=== PATIENT | female | born 1985 | race Caucasian/White ===

== ENCOUNTER 2020-04-25 14:50 | Outpatient (REF) | payer OTHER, SELFPAY | END 2020-04-25 14:51 | disposition home or self-care (01) | LOC: HO.LAB 14:50 | PROVIDERS: PCP Pediatrics; Visit Provider Internal Medicine | DX: Z20.828 Contact with and (suspected) exposure to other viral communicable diseases (principal) | CPT/HCPCS: C9803; U0003 ==

== ENCOUNTER 2020-05-30 06:20 | Outpatient (REF) | payer OTHER, SELFPAY | END 2020-05-30 06:21 | disposition home or self-care (01) | LOC: HO.LAB 06:20 | PROVIDERS: PCP Pediatrics; Visit Provider Internal Medicine | DX: Z20.828 Contact with and (suspected) exposure to other viral communicable diseases (principal) | CPT/HCPCS: C9803; U0003 ==

== ENCOUNTER 2020-06-07 06:50 | Outpatient (REF) | payer OTHER, SELFPAY | END 2020-06-07 06:51 | disposition home or self-care (01) | LOC: HO.LAB 06:50 | PROVIDERS: Visit Provider Internal Medicine | DX: Z20.828 Contact with and (suspected) exposure to other viral communicable diseases (principal) | CPT/HCPCS: 36415; C9803; U0003 ==

== ENCOUNTER 2020-12-20 11:51 | Outpatient (REF) | payer OTHER, SELFPAY | END 2020-12-20 11:52 | disposition home or self-care (01) | LOC: HO.BBR 11:51 | PROVIDERS: PCP Pediatrics; Visit Provider Internal Medicine | DX: Z13.89 Encounter for screening for other disorder (principal) ==

== ENCOUNTER 2021-06-22 12:20 | Outpatient (REF) | payer OTHER, SELFPAY | END 2021-06-22 12:21 | disposition home or self-care (01) | LOC: HO.BBR 12:20 | PROVIDERS: Visit Provider Internal Medicine | DX: Z13.89 Encounter for screening for other disorder (principal) ==

== ENCOUNTER 2021-11-20 15:35 | Outpatient (REF) | payer OTHER, SELFPAY | END 2021-11-20 15:36 | disposition home or self-care (01) | LOC: HO.BBR 15:35 | PROVIDERS: Visit Provider Internal Medicine | DX: Z13.89 Encounter for screening for other disorder (principal) ==

== ENCOUNTER 2022-02-28 12:34 | Outpatient (REF) | payer OTHER, SELFPAY | END 2022-02-28 12:35 | disposition home or self-care (01) | LOC: HO.BBR 12:34 | PROVIDERS: Visit Provider Internal Medicine | DX: Z13.89 Encounter for screening for other disorder (principal) ==

== ENCOUNTER 2022-06-06 09:58 | Outpatient (REF) | payer OTHER, SELFPAY | END 2022-06-06 09:59 | disposition home or self-care (01) | LOC: HO.BBR 09:58 | PROVIDERS: Visit Provider Internal Medicine | DX: Z13.89 Encounter for screening for other disorder (principal) ==

== ENCOUNTER 2022-09-05 10:09 | Outpatient (REF) | payer OTHER, SELFPAY | END 2022-09-05 10:10 | disposition home or self-care (01) | LOC: HO.BBR 10:09 | PROVIDERS: Visit Provider Internal Medicine | DX: Z13.89 Encounter for screening for other disorder (principal) ==

== ENCOUNTER 2023-03-31 10:19 | Outpatient (REF) | payer OTHER, SELFPAY | END 2023-03-31 10:20 | disposition home or self-care (01) | LOC: HO.BBR 10:19 | PROVIDERS: Visit Provider Internal Medicine | DX: Z13.89 Encounter for screening for other disorder (principal) ==

== ENCOUNTER 2023-09-29 09:50 | Outpatient (REF) | payer OTHER, SELFPAY | END 2023-09-29 09:51 | disposition home or self-care (01) | LOC: HO.BBR 09:50 | PROVIDERS: PCP Pediatrics; Visit Provider Internal Medicine | DX: Z13.89 Encounter for screening for other disorder (principal) ==

== ENCOUNTER 2024-02-25 13:11 | Outpatient (REF) | payer OTHER, SELFPAY | END 2024-02-25 13:12 | disposition home or self-care (01) | LOC: HO.BBR 13:11 | PROVIDERS: PCP Pediatrics; Visit Provider Internal Medicine | DX: Z13.89 Encounter for screening for other disorder (principal) ==

== ENCOUNTER 2024-07-02 15:03 | Outpatient (REF) | payer OTHER, SELFPAY ==
--- OUTSIDE RECORDS SUMMARY | 2024-07-02 15:06 | XMS_ITS | Clinical Summary ---
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 PM [facility] Blood Venous blood specimen / Unknown Venipuncture / Unknown 06/29/2024 9:02 AM EST 06/29/2024 9:02 AM EST Jacqueline Sultana NP LAB BLOOD ORDERABLES [facility] [address] [place] [address], * CT Abdomen Pelvis w Contrast (06/01/2024 4:08 PM EST) Anatomical Region Laterality Modality Body Computed Tomogra phy Historical Provider IMG CT PROCEDURES * (ABNORMAL) Lipid panel (04/07/2023) LDL/HDL Ratio 5 Triglycerides 231(A) 0 - 150 mg/dL Cholesterol 204(A) 0 - 200 mg/dL HDL 45 40 mg/dL LDL Cholesterol 113(A) 0 - 100 mg/dL Blood Venous blood specimen / Unknown Historical Provider LAB BLOOD ORDERAB LES * HIV Screening (03/25/2022) HIV Screening abstracted Historical Provider MD CECY Noel * Cervical Cancer Screening: HPV (09/29/2020) Cervical Cancer Screening: HPV negative, abstracted Historical Provider MD CECY Noel from Last 3 Months or Most Recently Relevant to Health Maintenance Care Teams Complex Manager Relationship Specialty Start Date End Date Urbano Trinidad MD [address] [place] [address] PCP - General Internal Medicine 09/19/21
--- OUTSIDE RECORDS SUMMARY | 2024-07-02 15:06 | XMS_ITS | Encounter Summary ---
Author Organization [facility] Address [address] [place] [address] Care Team Providers Care General Internal Medicine Doctor Name Role Phone Urbano Trinidad MD Primary Care Provider [phone] Reason for Visit * Reason Onset Date Comments add on to bloodwork 06/30/2024 Encounter Details Date Type Department Care Team (Late st Contact Info) Description 06/30/2024 Telephone Gastroenterology - [address] [place] [phone] Kimberlee Lauren MA add on to bloodwork Social History Tobacco Use Types Packs/Day Years Used Date Smoking Tobacco: Every Day Cigarettes Smokeless Tobacco: Former Alcohol Use Standard Drinks/Week Comments Yes 0 [...] care for your loved ones. For example, child and adolescent psychiatrist or elderly care for an older adult? [...] file Not on file Not on file documented as of this encounter Progress Notes * Kimberlee Lauren MA - 06/30/2024 7:10 AM EST Spoke to the lab. They can run the test for hemochromatosis genetics. Please add the order and write on comment that is an add on to yesterdays blood. documented in this encounter Plan of Treatment Upcoming Encounters Date Type Department Care Team (Late st Contact Info) Description 08/04/2024 1:20 PM EST Office Visit Gastroenterology - [address] [place] [address], [place] [phone] Jacqueline Sultana, DIANNA [address] [address] 11/02/2024 4:00 PM EDT Office Visit Adult [facility] [address] [place] [phone] Stephanie Garcia PA [address] [place] [address] 11/09/2024 1:00 PM EDT Office Visit [facility] Hematology Oncology [address] [place] [phone] Ede Hagan MD [address] [place] [address] Pending Results Name Type Priority Associated Diagnoses Date /Time Hemochromatosis mutation Lab Routine Abnormal blood level of iron 06/29/2024 9:02 AM EST Scheduled Orders Name Type Priority Associated Diagnoses Orde r Schedule Hemochromatosis mutation Lab Routine Abnormal blood level of iron 1 Occurrences starting 06/30/2024 until 06/30/2025 documented as of this encounter Visit Diagnoses Diagnosis Abnormal blood level of iron- Primary Other abnormal blood chemistry documented in this encounter Additional Health Concerns Assessment Noted Time PHQ-9 Depression Total Score: 6 05/13/20 24 10:45 AM EST documented as of this encounter Care Teams General Internal Medicine Doctor Relationship Specialty Start Date End Date Urbano Trinidad MD [address] [place] [address] PCP - General Internal Medicine 09/19/21 documented as of this encounter
--- OUTSIDE RECORDS SUMMARY | 2024-07-02 15:06 | XMS_ITS | Clinical Summary ---
Author Organization [facility] Address [address] [id number] Care Team Providers Care Agricultural Extension Educator Name Role Phone Araceli Flynn MD Primary Care Provider Allergies No known active allergies Medications Medication Sig Dispensed Refills Start Date End Date Status naproxen (NAPROSYN) 500 MG tablet Take 1 tablet (500 mg total) by mouth 2 (two) times a day with meals. 0 Active cyclobenzaprine (FLEXERIL) 10 MG tablet Take 1 tablet (10 mg total) by mouth 3 (three) times a day as needed for muscle spasms. 0 Active gabapentin (NEURONTIN) 300 MG capsule Take 1 capsule (300 mg total) by mouth 2 (two) times a day. 0 Active diclofenac (VOLTAREN) 75 MG EC tablet Take 1 tablet (75 mg total) by mouth daily. 0 Active Active Problems No known active problems Social History Tobacco Use Types Packs/Day Years Used Date Smoking Tobacco: Every Day Smokeless Tobacco: Never Alcohol Use Standard Drinks/Week Comments Yes 0 (1 standard drink = 0.6 oz pur e alcohol) ocassion. Sex and Gender Information Value Date Recorded Sex Assigned at Not on file Gender Identity Not on file Sexual Orientation Not on file Job Start Date Occupation Industry Not on file Not on file Not on file Last Filed Vital Signs Vital Sign Reading Time Taken Comments Blood Pressure 125/67 02/19/2024 10:29 AM EDT Pulse 90 02/19/2024 10:29 AM EDT Temperature 37.1 ??C (98.7 ??F) 02/19/2024 10:29 AM E DT Respiratory Rate - - Oxygen Saturation 9% 02/19/2024 10:29 AM EDT Inhaled Oxygen Concentration - - Weight 64.4 kg (142 lb) 02/19/2024 10:29 AM EDT Height 157.5 cm (5' 2 ) 06/05/2022 1:13 PM EST Body Mass Index 25.97 06/05/2022 1:13 PM EST Plan of Treatment Health Maintenance Due Date Last Done Comments Hepatitis B Vaccines (1 of 3 - 3-dose series) 1984 Depression Screening 1996 Preventative Health Evaluation 2002 Cervical Cancer Screening (Pap Smear) 2005 Pneumococcal Vaccine (2 of 2 - PCV) 02/17/2011 02/17/2010 COVID-19 Vaccine ( season) 2024 07/31/2021, 07/07/2021, 08/02/2020, Additional history exists Influenza Vaccine (#1) 2024 03/04/2013 DTap / Tdap / Td (4 - Td or Tdap) 11/02/2030 11/02/2020, 03/18/2013, 02/17/2010 Hepatitis C Screening Completed 06/04/2017 RSV Ped < 20 months Aged Out No longe r eligible based on patient's age to complete this topic Care Teams Agricultural Extension Educator Relationship Specialty Start Date End Date Araceli Flynn MD PCP - General Internal Medicine 07/17/16
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
== END 2024-07-02 15:04 | disposition home or self-care (01) ==
LOC: HO.BBR 15:03
PROVIDERS: Visit Provider Internal Medicine
DX: Z13.89 Encounter for screening for other disorder (principal)

== ENCOUNTER 2024-09-30 15:10 | Outpatient (REF) | payer OTHER, SELFPAY ==
--- OUTSIDE RECORDS SUMMARY | 2024-09-30 17:03 | XMS_ITS | Clinical Summary ---
Author Organization [address] Address [address] [place] [phone] Phone Care Team Providers Care Imaging System Administrator Name Role Phone Urbano Trinidad MD Primary Care Provider Allergies No known active allergies Medications cyanocobalamin (VITAMIN B-12) 1,000 mcg tablet Take 1 tablet (1,000 mcg total) by mouth 3 (three) times a week. 024 Active nicotine polacrilex (NICORETTE) 2 mg gum CHEW 1 PIECE BY MOUTH EVERY 2 HOURS NEEDED FOR NICOTINE CRAVING. MAX 8 PIECES PER DAY 023 Active senna-docusate (Senexon-S) 8.6-50 mg per tablet TAKE 2 TABLETS AT BEDTIME NEEDED FOR CONSTIPATION Active diclofenac (VOLTAREN) 1 % topical gel Apply 2 g topically 2 times daily. 024 Active ondansetron ODT (ZOFRAN-ODT) 4 mg disintegrating tablet Take 1 tablet (4 mg total) by mouth every 8 (eight) hours if needed for nausea or vomiting. 024 Active famotidine (Pepcid) 20 mg tablet Take 1 tablet (20 mg total) by mouth 2 (two) times a day. 180 each 1 Active traZODone (DESYREL) 50 mg tablet Take 1 tablet (50 mg total) by mouth at bedtime. 90 tablet 1 024 2024 Active diclofenac (VOLTAREN) 75 mg EC tablet TAKE 1 TAB 2X DAILY NEEDED FOR PAIN STOP IF ANY NAUSEA, VOMITING, GI UPSET, CONSTIPTAION OR DIARRHEA AND NOTIFY OFFICE 60 tablet 4 025 Active omeprazole (PriLOSEC) [address] capsule TAKE 2 CAPSULES BY MOUTH EVERY DAY 180 capsule 1 025 Active famotidine (PEPCID) 40 mg tabletIndications :Gastroesophageal reflux disease, unspecified whether esophagitis present,Nausea Take 1 tablet (40 mg total) by mouth 2 (two) times a day. 180 each 3 025 2025 Active ondansetron (ZOFRAN) 4 mg tabletIndications :Gastroesophageal reflux disease, unspecified whether esophagitis present,Nausea Take 1 tablet (4 mg total) by mouth every 12 (twelve) hours if needed for nausea or vomiting for up to 30 doses. 30 tablet 025 Active gabapentin (NEURONTIN) 300 mg capsule TAKE 1 CAPSULE BY MOUTH TWICE A DAY 60 capsule 2 025 Active acetaminophen (TYLENOL 8 HOUR) 650 mg 8 hr tablet TAKE 1 TABLET BY MOUTH THREE TIMES A DAY NEEDED FOR PAIN 90 tablet 2 025 Active cyclobenzaprine (FLEXERIL) 10 mg tablet TAKE 1 TABLET BY MOUTH AT BEDTIME NEEDED FOR MUSCLE SPASMS 30 tablet 1 025 Active cyclobenzaprine (FLEXERIL) 10 mg tablet Take 1 tablet (10 mg total) by mouth at bedtime as needed for muscle spasms. 30 tablet 4 024 2024 Discontinued traMADoL (ULTRAM) 50 mg tablet Take 1 tablet (50 mg total) by mouth every 6 (six) hours if needed (Moderate to severe pain) for up to 7 days. Max Daily Amount: 200 mg 28 tablet 025 2024 traMADoL (ULTRAM) 50 mg tablet Take 1 tablet (50 mg total) by mouth every 6 (six) hours if needed (Moderate to severe pain) for up to 7 days. Max Daily Amount: 200 mg 28 tablet 025 2024 Hospital, Clinic, or Other Facility Administered Medication Ordered Dose Route Frequency Start Date End Date Status lidocaine (XYLOCAINE) 1 % injection 0.5 mLIndications:Capsul itis of left ankle .5 mL inj Once PRN Procedure 09/21/2024 09/21/2024 Ended triamcinolone acetonide (KENALOG-40) 40 mg/mL injection 40 mgIndications:Capsul itis of left ankle 40 mg IAtc Once PRN Procedure 09/21/2024 09/21/2024 Ended Active Problems Problem Noted Date Diagnosed Date Macrocytosis 04/05/2024 Chronic pain of left ankle 04/05/2024 Gastroesophageal reflux disease without esophagi tis 04/05/2024 Genital herpes 02/26/2024 Herniated nucleus pulposus, C5-6 right Cervical disc herniation 10/03/2022 Overview (02/26/2024): Last [...] discussed her most recent cervical MRI from [facility] dated 07/31/2022 which shows disc desiccation and [...] human papilloma virus (HPV) 10/27/2018 Overview (02/26/2024): 2006 - SANA III - no follow up [...] valgus (acquired), right foot 10/22/2016 Hereditary hemochromatosis ([facility] V24) 016 Hemochromatosis 08/26/2012 Encounters Date Type Department Care Team Description 09/23/2024 Telephone Orthopedic Surgery [facility] [address] [phone] Sam Willis DPM 09/21/2024 2:15 PM EDT Office Visit Orthopedic Surgery [facility] [address] [phone] Sam Willis DPM Arthritis of left foot (Primary Dx); Capsulitis of left ankle 09/12/2024 10:04 AM EDT - 09/12/2024 11:59 PM EDT Hospital Encounter [facility] MRI [address] [place] [phone] Disorder of ligament of ankle, left; Peroneal tendinitis of left lower extremity; Capsulitis of left ankle Discharge Disposition: Home or Self Care 09/01/2024 1:45 PM EDT Office Visit Orthopedic [facility] [address] [phone] Lazaro, Sam A, DPM Disorder of ligament of ankle, left (Primary Dx); Peroneal tendinitis of left lower extremity; Capsulitis of left ankle 08/04/2024 1:20 PM EST Office Visit Gastroenterology - 299 [facility] 299 [facility] [address] [place] [phone] Jacqueline Sultana NP Gastroesophageal reflux disease, unspecified whether esophagitis present (Primary Dx); Nausea 07/13/2024 Telephone Orthopedic Surgery - [place] 250 175 [facility] [address] [place] [phone] Amy Kruse MA 07/09/2024 7:48 AM EST - 07/09/2024 11:59 PM EST Hospital Encounter [facility] Nuclear Medicine [address] [place] [phone] Epigastric pain; Nausea; Abnormal liver function; Fatty liver Discharge Disposition: Home or Self Care from Last 3 Months Immunizations Name Administration Dates Next Due HPV, Quadrivalent 12/16/2007,10/15/2007 Influenza trivalent, with pr eservative (Fluzone; Afluria) 6mo and older 08/12/2022,07/15/2016,04/13/2014,03/04,03/13/2012,03/14/2010 Measles 07/05/2016 PPD Test 07/12/2016,07/05/2016 [employer] SARS-CoV-2 COVID-19, mRNA, LNP-S, preservative free 07/31/2021,07/07/2021,08/02/2020,07/12 Pneumococcal polysaccharide 23 valent (Pneumovax 23) 2yo and older 02/17/2010 Rubella 09/25/2016 Tdap Tetanus diptheria acell ular pertussis (Boostrix; Adacel) 7yo and older 11/02/2020,03/18/2013,02/17/2010 Varicella live (Varivax) 12m o and older 09/25/2016 Surgical History Surgery Date Site/Laterality Comments MULTIPLE TOOTH EXTRACTIONS PROCEDURE: EACH ADD TOOTH EXTRACTION COLPOSCOPY PROCEDURE: [place] COLPOSCOPY ENTIRE VAGINA W/CERVIX IF PRESENT NECK [...] Record ed Within the last 3 months, bert conroy many times did you visit the emergency [...] for your loved ones. For example, child support case officer or elderly care for an older adult? [...] What is your living situation? 1 07/14/2023 Comments Unknown Sex and Gender Information Value Date Recorded Sex Assigned at Not on file Legal Sex Female 6:50 PM EST Gender Identity Not on file Sexual Orientation Not on file Obstetrics History Last Filed Vital Signs Vital Sign Reading Time Taken Comments Blood Pressure 132/70 05/13/2024 11:09 AM EST Pulse 82 05/13/2024 11:09 AM EST Temperature 36.5 ??C (97.7 ??F) 05/13/2024 11:[address] Respiratory Rate 16 05/13/2024 11:09 AM EST Oxygen Saturation - - Inhaled Oxygen Concentration - - Weight 66.7 kg (147 lb) 09/21/2024 2:17 PM EDT Height 152.4 cm (5') 09/21/2024 2:17 PM EDT Body Mass Index 28.71 09/21/2024 2:17 PM EDT Plan of Treatment Upcoming Encounters Date Type Department Care Team (Late st Contact Info) Description 10/06/2024 1:00 PM EDT Office Visit Gastroenterology - [address] [phone] Jacqueline Sultana NP [address] [phone] 11/02/2024 4:00 PM EDT Office Visit Adult Medicine [facility] [address] [place] [phone] Stephanie Garcia PA [address] [place] [address] 11/09/2024 1:00 PM EDT Office Visit [facility] Hematology Oncology [address] [place] [phone] Ede Hagan MD [address] [place] [address] Health Maintenance Due Date Last Done Comments Breast Cancer Screening 1984 Hepatitis B Vaccines (1 of 3 - 19+ 3-dose series) 09/05/2003 HPV Vaccines (3 - 3-dose series) 04/16/2008 12/16/2007, 10/15/2007 Pneumococcal Vaccine: Pediatrics (0 to 5 Years) and At-Risk Patients (6 to 64 Years) (2 of 2 - PCV) 02/17/2011 02/17/2010 COVID-19 Vaccine (5 - 2024-25 season) 2024 07/31/2021, 07/07/2021, 08/02/2020, Additional history exists Influenza Vaccine (Season Ended) 2025 02/17/2023, 08/12/2022, 07/15/2016, Additional history exists Depression Screening [...] patient's age to complete this topic Meningococcal B Vaccine Aged Out No l onger eligible based on patient's age to complete this topic RSV Immunization Patients Under 20 months Aged Out No longer eligible based on patient's age to complete this topic Procedures Procedure Name Priority Date/Time Associated Diagnosis Comments [place] ARTHROCENTESIS/ASPIRA TION/INJECTION INTERMEDIATE JOINT/BURSA WO U/S GUID Routine 09/21/2024 2:15 PM EDT Capsulitis of left ankle MR ANKLE WO CONTRAST LEFT Routine 09/12/2024 10:51 AM EDT Disorder of ligament of ankle, left Peroneal tendinitis of left lower extremity Capsulitis of left ankle NM HEPATOBILIARY SYSTEM IMAGING W DRUG Routine 07/09/2024 11:24 AM EST Epigastric pain Nausea Abnormal liver function Fatty liver EXTERNAL CLINICAL LAB 07/09/2024 HEPATITIS C ANTIBODY Routine 06/29/2024 9:02 AM EST Epigastric pain Nausea Abnormal liver function Fatty liver Gastroenteritis Transaminitis Hereditary hemochromatosis (CMS/HCC V24) Gastroesophageal reflux disease without esophagitis Cervical disc herniation Macrocytosis LIPID PANEL Routine 04/07/2023 HM HIV SCREENING Routine 03/25/2022 HM HPV Routine 09/29/2020 from Last 3 Months or Most Recently Relevant to Health Maintenance Results * [place] ARTHROCENTESIS/ASPIRATION/INJECTION INTERMEDIATE JOINT/BURSA WO U/S GUID (09/21/2024 2:15 PM EDT) Narrative Sam Willis DPM - 09/21/2024 2:15 PM EDT Sam Willis DPM ? 09/21/2024 ??5:54 PM M Inj/Asp: L ankle Indications: pain Details: 25 G needle Medications: 0.5 mL lidocaine 1 %; 40 mg triamcinolone acetonide 40 mg/mL Informed Consent: ??Laterality: ??Left us Sam Willis DPM IN CLINIC/BEDSIDE ORDERABLE S Final Result * MR Ankle wo Contrast Left (09/12/2024 10:51 AM EDT) Anatomical Region Laterality Modality Lower Extremities, Ankle Left Magneti c Resonance 09/13/2024 9:29 AM EDT Impressions 09/13/2024 9:40 AM EDT 1. ??Severe degenerative changes at the talonavicular articulation. 2. ??Prominent osteophytes arising from the posterior subtalar joint with a small associated effusion and mild adjacent soft tissue edema. 3. ??No Achilles tendinopathy or tear. 4. ??Prominent fluid in the flexor hallucis longus tendon sheath. -------- FINAL REPORT -------- Dictated By: Bassam Laurent Dictated Date: 09/13/2024 09:29 ET Assigned Physician: Bassam Laurent Reviewed and Electronically Signed By: Bassam Laurent Signed Date: 09/13/2024 09:40 ET Workstation ID: [id number] Transcribed By: Self Edit Transcribed Date: 09/13/2024 09:29 ET Narrative 09/13/2024 9:40 AM EDT Procedure: MRI of the left ankle without intravenous contrast. HISTORY: Insertional Achilles tendinitis and ATFL pain. COMPARISON: None. TECHNIQUE: Multiplanar multisequence MRI of the left ankle without intravenous contrast administration. FINDINGS: Tendons: The Achilles tendon is normal in caliber, contour, and signal. ??The peroneal tendons are normal. ??There is a large amount of fluid in the flexor hallucis longus tendon sheath. ??The medial flexor tendons are unremarkable. ??The extensor tendons are normal. Ligaments: The anterior and posterior tibiofibular and talofibular ligaments are intact. ??Calcaneofibular ligament is normal. ??Deltoid complex and spring ligaments are normal. ??The Lisfranc and intermetatarsal ligaments are normal. Plantar fascia: Normal. Bones: Symmetric ankle mortise with an intact talar dome. ??Prominent osteophytes arising from the posterior subtalar joint with a small joint effusion and adjacent soft tissue edema. ??Severe degenerative changes at the talonavicular articulation, with diffuse full-thickness cartilage loss, patchy marrow edema, multiple small subchondral cysts, and small dorsal osteophytes. ??Small subchondral cyst in the distal calcaneus at the articulation with the cuboid. ??Small retrocalcaneal spur. Procedure Note Bassam Laurent MD - 09/13/2024 Procedure: MRI of the left ankle without intravenous contrast. HISTORY: Insertional Achilles tendinitis and ATFL pain. COMPARISON: None. TECHNIQUE: Multiplanar multisequence MRI of the left ankle withoutintravenous contrast administration. FINDINGS: Tendons: The Achilles tendon is normal in caliber, contour, and signal.The peroneal tendons are normal. There is a large amount of fluid in theflexor hallucis longus tendon sheath. The medial flexor tendons areunremarkable. The extensor tendons are normal. Ligaments: The anterior and posterior tibiofibular and talofibularligaments are intact. Calcaneofibular ligament is normal. Deltoidcomplex and spring ligaments are normal. The Lisfranc and intermetatarsalligaments are normal. Plantar fascia: Normal. Bones: Symmetric ankle mortise with an intact talar dome. Prominentosteophytes arising from the posterior subtalar joint with a small jointeffusion and adjacent soft tissue edema. Severe degenerative changes atthe talonavicular articulation, with diffuse full-thickness cartilageloss, patchy marrow edema, multiple small subchondral cysts, and smalldorsal osteophytes. Small subchondral cyst in the distal calcaneus at thearticulation with the cuboid. Small retrocalcaneal spur. IMPRESSION: 1. Severe degenerative changes at the talonavicular articulation. 2. Prominent osteophytes arising from the posterior subtalar joint with asmall associated effusion and mild adjacent soft tissue edema. 3. No Achilles tendinopathy or tear. 4. Prominent fluid in the flexor hallucis longus tendon sheath. -------- FINAL REPORT -------- Dictated By: Bassam Laurent Dictated Date: 09/13/2024 09:29 ET Assigned Physician: Bassam Laurent Reviewed and Electronically Signed By: Bassam Laurent Signed Date: 09/13/2024 09:40 ET Workstation ID: [id number] Transcribed By: Self Edit Transcribed Date: 09/13/2024 09:29 ET Sam Willis DPM IMG MRI PROCEDURES Final Re sult * NM Hepatobiliary System Imaging W Drug (07/09/2024 11:24 AM EST) Anatomical Region Laterality Modality Body Nuclear Medicine 07/09/2024 3:08 PM EST Impressions 07/09/2024 3:10 PM EST No evidence of cystic duct obstruction. Patent common bile duct. Normal gallbladder ejection fraction. -------- FINAL REPORT -------- Dictated By: Ramesh Perea Dictated Date: 07/09/2024 15:08 ET Assigned Physician: Ramesh Perea Reviewed and Electronically Signed By: Ramesh Perea Signed Date: 07/09/2024 15:10 ET Workstation ID: [id number] Transcribed By: Self Edit Transcribed Date: 07/09/2024 15:08 ET Narrative 07/09/2024 3:10 PM EST HISTORY: Right upper quadrant pain FINDINGS: Routine hepatobiliary scintigraphy examination was performed following 3.82 mCi of Tc-99m Choletec IV. No prior relevant studies available for comparison. There is prompt accumulation of radiopharmaceutical by the hepatic parenchyma. There is normal uptake within the common bile duct, gallbladder, and small bowel. There is no biliary obstruction. Calculated gallbladder ejection fraction of 79% is within normal limits. Procedure Note Ramesh Perea MD - 07/09/2024 HISTORY: Right upper quadrant pain FINDINGS: Routine hepatobiliary scintigraphy examination was performedfollowing 3.82 mCi of Tc-99m Choletec IV. No prior relevant studies available for comparison. There is prompt accumulation of radiopharmaceutical by the hepaticparenchyma. There is normal uptake within the common bile duct,gallbladder, and small bowel. There is no biliary obstruction. Calculated gallbladder ejection fraction of 79% is within normal limits. IMPRESSION: No evidence of cystic duct obstruction. Patent common bile duct. Normal gallbladder ejection fraction. -------- FINAL REPORT -------- Dictated By: Ramesh Perea Dictated Date: 07/09/2024 15:08 ET Assigned Physician: Ramesh Perea Reviewed and Electronically Signed By: Ramesh Perea Signed Date: 07/09/2024 15:10 ET Workstation ID: [id number] Transcribed By: Self Edit Transcribed Date: 07/09/2024 15:08 ET Jacqueline Sultana EMISSIONS REPAIR TECHNICIAN IMG NM PROCEDURES Final Resul t * External clinical lab (07/09/2024) Provider [facility] LAB BLOOD ORDERABLES Fin al Result * Hepatitis C antibody (06/29/2024 9:02 AM EST) Hepatitis C Antibody Negative Negative LAB CHEMISTRY METHOD 06/29/2024 1:13 PM EST [facility] Blood Venous blood specimen / Unknown Venipuncture / Unknown 06/29/2024 9:02 AM EST 06/29/2024 9:02 AM EST Jacqueline Sultana EMISSIONS REPAIR TECHNICIAN LAB BLOOD ORDERABLES Final Re sult [facility] [address] [place] [address], * (ABNORMAL) Lipid panel (04/07/2023) Pathologist [facility] LDL/HDL Ratio 5 Triglycerides 231(A) 0 - 150 mg/dL Cholesterol 204(A) 0 - 200 mg/dL HDL 45 >=40 mg/dL LDL Cholesterol 113(A) 0 - 100 mg/dL Blood Venous blood specimen / Unknown Historical Provider LAB BLOOD ORDERABLES Valorie l Result * HIV Screening (03/25/2022) [facility] HIV Screening abstracted Historical Provider HEALTH MAINTENANCE Final Result * Cervical Cancer Screening: HPV (09/29/2020) [facility] Cervical Cancer Screening: HPV negative, abstracted Historical Provider HEALTH MAINTENANCE Final Result from Last 3 Months or Most Recently Relevant to Health Maintenance Insurance [facility] [employer] Care Teams Imaging System Administrator Relationship Specialty Start Date End Date Urbano Trinidad MD [address] [place] [address] PCP - General Internal Medicine 09/19/21
--- OUTSIDE RECORDS SUMMARY | 2024-09-30 17:03 | XMS_ITS | Clinical Summary ---
Author Organization [facility] Address [address] [id number] Care Team Providers Care Area Field Worker Name Role Phone Araceli Flynn MD Primary [...] age to complete this topic Care Teams Area Field Worker Relationship Specialty Start Date End Date Araceli Flynn MD PCP - General Internal Medicine 07/17/16
== END 2024-09-30 15:11 | disposition home or self-care (01) ==
LOC: HO.BBR 15:10
PROVIDERS: PCP Pediatrics; Visit Provider Internal Medicine
DX: Z13.89 Encounter for screening for other disorder (principal)

== ENCOUNTER 2025-02-01 14:51 | Outpatient (REF) | payer OTHER, SELFPAY ==
--- OUTSIDE RECORDS SUMMARY | 2025-02-01 16:10 | XMS_ITS | Clinical Summary ---
Author Organization [facility] Address [address] [place], [place] [id number] Care Team Providers Care Non Linear Editor Name Role Phone Araceli Flynn MD Primary [...] 90 02/19/2024 10:29 AM EDT Temperature 37.1 C (98.7 F) 02/19/2024 10:29 AM EDT Respiratory Rate - - Oxygen Saturation 9% [...] 08/02/2020, Additional history exists Influenza Vaccine (#1) 2025 03/04/2013 DTap / Tdap / Td (4 - Td or Tdap) 11/02/2030 11/02/2020, 03/18/2013, 02/17/2010 Hepatitis C Screening Completed 06/04/2017 RSV Ped < 20 months Aged Out No longe r eligible based on patient's age to complete this topic Care Teams Non Linear Editor Relationship Specialty Start Date End Date Araceli Flynn MD PCP - General Internal Medicine 07/17/16
--- OUTSIDE RECORDS SUMMARY | 2025-02-01 16:10 | XMS_ITS | Clinical Summary ---
Author Organization [address] Address [address] [place] [phone] Phone Care Team Providers Care Floor Polisher Name Role Phone Urbano Trinidad MD Primary Care Provider Allergies No known active allergies Medications nicotine polacrilex (NICORETTE) 2 mg gum CHEW 1 PIECE BY MOUTH EVERY 2 HOURS NEEDED FOR NICOTINE CRAVING. MAX 8 PIECES PER DAY 023 Active senna-docusate (Senexon-S) 8.6-50 mg per tablet TAKE 2 TABLETS AT BEDTIME NEEDED FOR CONSTIPATION 023 Active diclofenac (VOLTAREN) 1 % topical gel Apply 2 g topically 2 times daily. 024 Active famotidine (PEPCID) 40 mg tabletIndications :Gastroesophageal [...] to 30 doses. 30 tablet 025 Active traZODone (DESYREL) 50 mg tablet TAKE 1 TABLET BY MOUTH EVERYDAY AT BEDTIME 90 tablet 1 025 Active cyanocobalamin (VITAMIN B-12) 1,000 mcg tablet TAKE 1 TABLET BY MOUTH THREE TIMES A WEEK. 36 tablet 4 025 Active gabapentin (NEURONTIN) 300 mg capsule Take 1 capsule (300 mg total) by mouth 2 (two) times a day. 180 capsule 1 025 Active cyclobenzaprine (FLEXERIL) 10 mg tablet TAKE 1 TABLET BY MOUTH AT BEDTIME NEEDED FOR MUSCLE SPASMS 30 tablet 3 025 Active oxyCODONE (ROXICODONE) 5 mg immediate release tabletIndications :Chronic pain syndrome,Spondylo sis of cervical region without myelopathy or radiculopathy,Chr onic bilateral low back pain without sciatica,Chronic pain of left ankle Take 1 tablet (5 mg total) by mouth 2 (two) times a day if needed for severe pain. Max Daily Amount: 10 mg 56 tablet 025 Active ondansetron ODT (ZOFRAN-ODT) 4 mg disintegrating tablet Take 1 tablet (4 mg total) by mouth every 8 (eight) hours if needed for nausea or vomiting. 024 2024 Discontinued oxyCODONE (ROXICODONE) 5 mg immediate release tabletIndications :Chronic pain syndrome,Spondylo sis of cervical region without myelopathy or radiculopathy,Chr onic bilateral low back pain without sciatica,Chronic pain of left ankle Take 1 tablet (5 mg total) by mouth 2 (two) times a day if needed for severe pain. Max Daily Amount: 10 mg 56 tablet 025 2024 Discontinued(R eorder) Active Problems Problem Noted Date Diagnosed Date Mixed hyperlipidemia 11/18/2024 Transaminitis 11/18/2024 Macrocytosis 04/05/2024 Chronic pain of left ankle 04/05/2024 Gastroesophageal reflux disease without esophagi tis 04/05/2024 Genital herpes 02/26/2024 Herniated nucleus pulposus, C5-6 right Cervical disc herniation 10/03/2022 Overview (02/26/2024): Last Assessment & Plan: Ms. Gonzalez did attend physical therapy for her neck [...] discussed her most recent cervical MRI from [place] dated 07/31/2022 which shows disc desiccation and [...] valgus (acquired), right foot 10/22/2016 Hereditary hemochromatosis (CMS/HCC V24) 016 Hemochromatosis 08/26/2012 Encounters Date Type Department Care Team Description 01/18/2025 1:30 PM EDT Office Visit [address] [phone] Urbano Trinidad MD Chronic pain syndrome (Primary Dx); Spondylosis of cervical region without myelopathy or radiculopathy; Chronic bilateral low back pain without sciatica; Chronic pain of left ankle; Transaminitis; Hereditary hemochromatosis (CMS/HCC V24); Macrocytosis; Mixed hyperlipidemia; Gastroesophageal reflux disease without esophagitis 11/18/2024 1:00 PM EDT Office Visit [address] [phone] Urbano Trinidad MD Chronic pain syndrome (Primary Dx); Spondylosis of cervical region without myelopathy or radiculopathy; Chronic bilateral low back pain without sciatica; Chronic pain of left ankle; Transaminitis; Hereditary hemochromatosis (CMS/HCC V24); Macrocytosis; Mixed hyperlipidemia; Gastroesophageal reflux disease without esophagitis 11/09/2024 1:00 PM EDT Office Visit [facility] Hematology Oncology [address] [place] [phone] Ede Hagan MD Hereditary hemochromatosis ([facility]/HCC V24) (Primary Dx) 11/08/2024 Telephone Gastroenterology - 299 [facility] [address] [phone] Chelly Foley [place] 11/05/2024 7:59 AM EDT - 11/05/2024 11:59 PM EDT Hospital Encounter [facility] Xray [address] [place] [phone] Gastroesophageal reflux disease, unspecified whether esophagitis present; Nausea Discharge Disposition: Home or Self Care 11/02/2024 4:00 PM EDT Office Visit [address] [phone] Stepahnie Garcia PA Adult general medical examination (Primary Dx); Multiple atypical skin moles; Cervical disc herniation; Insomnia, unspecified type; Screening cholesterol level; Screening for diabetes mellitus; Encounter for screening mammogram for malignant neoplasm of breast from Last 3 Months Immunizations Name Administration Dates Next Due HPV, Quadrivalent 12/16/2007,10/15/2007 Influenza trivalent, with pr eservative (Fluzone; Afluria) 6mo and older 08/12/2022,07/15/2016,04/13/2014,03/04,03/13/2012,03/14/2010 Measles 07/05/2016 PPD Test 07/12/2016,07/05/2016 [employer] SARS-CoV-2 COVID-19, mRNA, LNP-S, preservative free 07/31/2021,07/07/2021,08/02/2020,07/12 Pneumococcal conjugate 20 va lent (Prevnar 20, PCV 20) 2mo and older 11/02/2024 Pneumococcal polysaccharide 23 valent (Pneumovax 23) 2yo and older 02/17/2010 Rubella 09/25/2016 Tdap Tetanus diptheria acell ular pertussis (Boostrix; Adacel) 7yo and older 11/02/2020,03/18/2013,02/17/2010 Varicella live (Varivax) 12m o and older 09/25/2016 Surgical History Surgery Date Site/Laterality Comments MULTIPLE TOOTH EXTRACTIONS PROCEDURE: EACH ADD TOOTH EXTRACTION COLPOSCOPY PROCEDURE: MN COLPOSCOPY ENTIRE VAGINA W/CERVIX IF PRESENT NECK [...] Types Packs/Day Years Used Date Smoking Tobacco: Former Cigarettes Smokeless Tobacco: Former Tobacco Cessation:Counseling Given: Not Answered Alcohol Use Standard Drinks/Week [...] your loved ones. For example, child care supervisor or elderly care for an older adult? [...] is your living situation? 1 07/14/2023 Comments No Sex and Gender Information Value Date Recorded Sex Assigned at Not on file Legal Sex Female 6:50 PM EST Gender Identity Not on file Sexual Orientation Not on file Obstetrics History Last Filed Vital Signs Vital Sign Reading Time Taken Comments Blood Pressure 128/72 01/18/2025 1:23 PM EDT Pulse 110 01/18/2025 1:23 PM EDT Temperature 36.5 C (97.7 F) 01/18/2025 1:23 PM EDT Respiratory Rate 12 01/18/2025 1:23 PM EDT Oxygen Saturation 99% 11/09/2024 1:03 PM EDT Inhaled Oxygen Concentration - - Weight 65.3 kg (144 lb) 01/18/2025 1:23 PM EDT Height 152.4 cm (5') 01/18/2025 1:23 PM EDT Body Mass Index 28.12 01/18/2025 1:23 PM EDT Plan of Treatment Upcoming Encounters Date Type Department Care Team (Late st Contact Info) Description 04/20/2025 1:30 PM EST Office Visit Adult [facility] [address] [place], [place] [phone] Urbano Trinidad MD [address] [place], [place] 08/04/2025 1:00 PM EST Office Visit [facility] Hematology Oncology [address] [place] [phone] Ede Hagan MD [address] [place] [address] Health Maintenance Due Date Last Done Comments Breast Cancer Screening 1984 Hepatitis B Vaccines (1 of 3 - 19+ 3-dose series) 09/05/2003 HPV Vaccines (3 - 3-dose series) 04/16/2008 12/16/2007, 10/15/2007 COVID-19 Vaccine ( season) 2024 07/31/2021, 07/07/2021, 08/02/2020, Additional history exists Influenza Vaccine (#1) 2025 , 08/12/2022, 07/15/2016, Additional history exists Social Influencers of Health Screening 05/13/2025 05/13/2024 Cervical Cancer Screening: HPV 09/29/2025 09/29/2020 Cholesterol Screening (Lipid Panel) 11/02/2029 11/02/2024, 04/07/2023 DTaP,Tdap,and Td Vaccines (4 - Td or Tdap) 11/02/2030 11/02/2020, 03/18/2013, 02/17/2010 Varicella Vaccines Aged Out 09/25/2016 No longer eligible based on patient's age to complete this topic HIV Screening Completed 03/25/2022 Hepatitis C Screening Completed 06/29/2024 , 03/25/2022, 06/04/2017 Depression Screening Completed 10/26/2024 Pneumococcal Vaccine: Pediatrics (0 to 5 Years) and At-Risk Patients (6 to 49 Years) Completed 11/02/2024, 02/17/2010 HIB Vaccines Aged Out No longer eligi [...] Procedure Name Priority Date/Time Associated Diagnosis Comments THC, URINE, CONFIRMATION Routine 01/18/2025 2:06 PM EDT Chronic pain syndrome CBC WITH AUTO DIFFERENTIAL Routine 01/18/2025 2:06 PM EDT Transaminitis Hereditary hemochromatosis (CMS/HCC V24) Macrocytosis CBC AND DIFFERENTIAL Routine 01/18/2025 2:06 PM EDT Transaminitis Hereditary hemochromatosis (CMS/HCC V24) Macrocytosis HEPATIC FUNCTION PANEL Routine 01/18/2025 2:06 PM EDT Transaminitis Hereditary hemochromatosis (CMS/HCC V24) Macrocytosis DRUG ABUSE SCREEN EXPANDED WITH REFLEX CONFIRMATION, URINE Routine 01/18/2025 2:06 PM EDT Chronic pain syndrome ..MISCELLANEOUS REFERENCE LAB TEST 11/09/2024 XR UGI W AIR CONTRAST Routine 11/05/2024 8:26 AM EDT Gastroesophageal reflux disease, unspecified whether esophagitis present Nausea HEMOGLOBIN A1C Routine 11/02/2024 4:17 PM EDT Adult general medical examination Multiple atypical skin moles Cervical disc herniation Insomnia, unspecified type Screening cholesterol level Screening for diabetes mellitus THYROID STIMULATING HORMONE WITH REFLEX TO FREE T4 AND FREE T3 Routine 11/02/2024 4:17 PM EDT Adult general medical examination Multiple atypical skin moles Cervical disc herniation Insomnia, unspecified type Screening cholesterol level Screening for diabetes mellitus LIPID PANEL WITH REFLEX TO DIRECT LDL Routine 11/02/2024 4:17 PM EDT Adult general medical examination Multiple atypical skin moles Cervical disc herniation Insomnia, unspecified type Screening cholesterol level Screening for diabetes mellitus COMPREHENSIVE METABOLIC PANEL Routine 11/02/2024 3:42 PM EDT Pigment cirrhosis (CMS/HCC V24) COMPLETE BLOOD COUNT Routine 11/02/2024 3:42 PM EDT Pigment cirrhosis (CMS/HCC V24) FERRITIN Routine 11/02/2024 3:42 PM EDT Pigment cirrhosis (CMS/HCC V24) IRON AND TIBC Routine 11/02/2024 3:42 PM EDT Pigment cirrhosis (CMS/HCC V24) HEPATITIS C ANTIBODY Routine 06/29/2024 9:02 AM EST Epigastric pain Nausea Abnormal liver function Fatty liver Gastroenteritis Transaminitis Hereditary hemochromatosis (CMS/HCC V24) Gastroesophageal reflux disease without esophagitis Cervical disc herniation Macrocytosis HIV SCREENING Routine 03/25/2022 HPV Routine 09/29/2020 from Last 3 Months or Most Recently Relevant to Health Maintenance Results * (ABNORMAL) Drug abuse screen expanded with reflex confirmation, urine (01/18/2025 2:06 PM EDT) Amphetamine Screen, Ur Negative Negative LAB CHEMISTRY METHOD 5 5:29 PM EDT [facility] Comment:Certain OTC medicati ons containing ephedrine, phenylephrine, pseudoephedrine and phenylpropanolamine can cause false positive results. Barbiturate Screen, Ur Negative Negative LAB CHEMISTRY METHOD 5 5:29 PM EDT [facility] Benzodiazepine Screen, Ur Negative Negative LAB CHEMISTRY METHOD 5 5:29 PM EDT [facility] Cocaine Screen, Ur Negative Negative LAB CHEMISTRY METHOD 5 5:29 PM EDT [facility] Opiate Screen, Ur Negative Negative LAB CHEMISTRY METHOD 5 5:29 PM EDT [facility] Cannabinoid (THC) Screen, Ur Positive(A ) Negative LAB CHEMISTRY METHOD 5 5:29 PM EDT [facility] Comment:Specimens from patie nts taking pantoprazole sodium (Protonix) have been shown to produce false positive results. Fentanyl, Ur Negative Negative LAB CHEMISTRY METHOD 5 5:29 PM EDT [facility] Oxycodone Screen, Ur Negative Negative LAB CHEMISTRY METHOD 5 5:29 PM EDT [facility] Urine Urine specimen obtained by clean catch procedure / Unknown Non-blood Collection / Unknown 01/18/2025 2:06 PM EDT 01/18/2025 2:15 PM EDT Narrative [facility] - 01/18/2025 5:29 PM EDT Assay cutoffs: Amphetamines 1000 ng/mL Barbiturates 200 ng/mL Benzodiazepines 200 ng/mL Cocaine 300 ng/mL Fentanyl 1 ng/mL Opiates 300 ng/mL Oxycodone 100 ng/mL THC 50 ng/mL Semi-quantitative assay for screening purposes only. Unconfirmed screening result should not be used for non-medical purposes. *POSITIVE RESULTS ARE AUTOMATICALLY SENT FOR ALTERNATE METHOD CONFIRMATION* us Urbano Trinidad MD LAB URINE ORDERABLES Final Result [facility] [address] [place] [address], * (ABNORMAL) CBC auto differential (01/18/2025 2:06 PM EDT) WBC 10.7 4.8 - 10.8 K/[facility] LAB HEMETOLOGY METHOD 01/18/2025 4:47 [facility] RBC 4.20 3.80 - 4.80 M/mcL LAB HEMETOLOGY METHOD 01/18/2025 4:47 PM [facility] Hemoglobin 13.7 11.5 - 16.0 g/dL LAB HEMETOLOGY METHOD 01/18/2025 4:47 PM [facility] Hematocrit 39.8 35.0 - 47.0 % LAB HEMETOLOGY METHOD 01/18/2025 4:47 PM [facility] MCV 95.9 79.0 - 98.0 FL LAB HEMETOLOGY METHOD 01/18/2025 4:47 PM [facility] MCH 33.0(H) 27.0 - 32.0 pcg LAB HEMETOLOGY METHOD 01/18/2025 4:47 PM [facility] MCHC 34.4 32.0 - 37.0 g/dL LAB HEMETOLOGY METHOD 01/18/2025 4:47 PM [facility] RDW 11.6 11.0 - 15.0 % LAB HEMETOLOGY METHOD 01/18/2025 4:47 PM [facility] Platelets 343 130 - 400 K/mcL LAB HEMETOLOGY METHOD 01/18/2025 4:47 PM [facility] MPV 9.4 7.0 - 11.0 FL LAB HEMETOLOGY METHOD 01/18/2025 4:47 PM [facility] NRBC 0.0 <1.0 % LAB HEMETOLOGY METHOD 01/18/2025 4:47 PM [facility] NRBC Absolute 0.00 <0.10 K/mcL LAB HEMETOLOGY METHOD 01/18/2025 4:47 PM [facility] Neutrophils Relative 81.7 % LAB HEMETOLOGY METHOD 01/18/2025 4:47 PM [facility] Lymphocytes Relative 11.9 % LAB HEMETOLOGY METHOD 01/18/2025 4:47 PM [facility] Monocytes Relative 4.8 % LAB HEMETOLOGY METHOD 01/18/2025 4:47 PM [facility] Eosinophils Relative 0.1 % LAB HEMETOLOGY METHOD 01/18/2025 4:47 PM [facility] Basophils Relative 0.4 % LAB HEMETOLOGY METHOD 01/18/2025 4:47 PM [facility] Immature Granulocytes Relative 1.1 % LAB HEMETOLOGY METHOD 01/18/2025 4:47 PM [facility] Neutrophils Absolute 8.75(H) 1.50 - 7.00 K/mcL LAB HEMETOLOGY METHOD 01/18/2025 4:47 PM [facility] Lymphocytes Absolute 1.27 1.00 - 5.00 K/mcL LAB HEMETOLOGY METHOD 01/18/2025 4:47 PM [facility] Monocytes Absolute 0.51 0.20 - 1.00 K/mcL LAB HEMETOLOGY METHOD 01/18/2025 4:47 PM [facility] Eosinophils Absolute 0.01 0.00 - 0.50 K/mcL LAB HEMETOLOGY METHOD 01/18/2025 4:47 PM [facility] Basophils Absolute 0.04 0.00 - 0.20 K/mcL LAB HEMETOLOGY METHOD 01/18/2025 4:47 PM [facility] Immature Granulocytes Absolute 0.12(H) 0.00 - 0.03 K/mcL LAB HEMETOLOGY METHOD 01/18/2025 4:47 PM [facility] Blood Venous blood specimen / Unknown Venipuncture / Unknown 01/18/2025 2:06 PM EDT 01/18/2025 2:15 PM EDT us Urbano Trinidad MD LAB BLOOD ORDERABLES Final Result [facility] ([facility]) [facility] [address] [place] [address], [place] [phone] * (ABNORMAL) THC, urine, confirmation (01/18/2025 2:06 PM EDT) [facility] Signature Tetrahydrocannabinoid (THC) 847(H) Negative ng/mL 01/21/2025 10:44 PM EDT [facility] Tetrahydrocannabinoid (THC)/Creatinine Ratio 911 5 10:44 PM EDT [facility] Creatinine 93 20 - 250 mg/dL 01/21/2025 10:44 PM EDT [facility] Adulterants Negative 01/21/2025 10:44 PM EDT [facility] Comment: The urine THC/creatinine ratio is the best monitor to determine the possibility of continued drug usage. With abstinence, the ratio should decrease within one week by a factor of two or more. Confirmation (GC/MS) Decision Limit THC (76-[id number]-7-[id number]) 3 ng/mL Adulterant Decision Limit: General Oxidants 200 ug/mL The adulterant assay tests for General Oxidants, including Chromates and Nitrites. Adulterants are substances either ingested or added directly to a urine specimen to prevent the detection of drug use. If applicable, any drug confirmation testing reported here was developed and the performance characteristics determined by [facility]. This confirmation testing has not been cleared or approved by the FDA. The laboratory is regulated under CLIA as qualified to perform high-complexity testing. This test is used for patient testing purposes. It should not be regarded as investigational or for research. Test performed at [facility], [address], [place] [address] Nancy Glasgow MD, PhD - [employer] Mold Tester Urine Urine specimen obtained by clean catch procedure / Unknown Non-blood Collection / Unknown 01/18/2025 2:06 PM EDT 01/18/2025 5:29 PM EDT us Urbano Trinidad MD LAB URINE ORDERABLES Final Result [address] [place] [address] * (ABNORMAL) Hepatic function panel (01/18/2025 2:06 PM EDT) Total Protein 7.4 6.0 - 8.0 g/dL LAB CHEMISTRY METHOD 01/18/2025 4:54 PM EDT [facility] Albumin 4.4 3.2 - 5.0 g/dL LAB CHEMISTRY METHOD 01/18/2025 4:54 PM EDT [facility] Total Bilirubin 0.5 0.0 - 1.4 mg/dL LAB CHEMISTRY METHOD 01/18/2025 4:54 PM EDT [facility] Bilirubin, Direct <0.1 0.0 - 0.3 mg/dL LAB CHEMISTRY METHOD 01/18/2025 4:54 PM EDT [facility] Bilirubin, Indirect LAB CHEMISTRY METHOD 01/18/2025 4:54 PM EDT [facility] Comment:Unable to calculate Indirect Bilirubin. ALT (SGPT) 62(H) 10 - 60 unit/L LAB CHEMISTRY METHOD 01/18/2025 4:54 PM EDT [facility] AST (SGOT) 26 10 - 42 unit/L LAB CHEMISTRY METHOD 01/18/2025 4:54 PM EDT [facility] Alkaline Phosphatase 60 42 - 121 unit/L LAB CHEMISTRY METHOD 01/18/2025 4:54 PM EDT [facility] Blood Venous blood specimen / Unknown Venipuncture / Unknown 01/18/2025 2:06 PM EDT 01/18/2025 2:15 PM EDT us Urbano Trinidad MD LAB BLOOD ORDERABLES Final Result [facility] ([facility]) [facility] [address] [place] [address], [place] [phone] * Miscellaneous reference lab test (11/09/2024) us Provider Onbase MD LAB BLOOD ORDERABLES Final Re sult * XR UGI w Air Contrast (11/05/2024 8:26 AM EDT) Anatomical Region Laterality Modality Body Radiographic Bell ging 11/05/2024 9:44 AM EDT Impressions 11/05/2024 12:04 PM EDT 1. Mild esophageal dysmotility. 2. Possible tiny, sliding, axial hiatal hernia without visualized gastroesophageal reflux. -------- FINAL REPORT -------- Dictated By: Magdalena Mcneil Dictated Date: 11/05/2024 09:44 ET Assigned Physician: Taqueria Santamaria Reviewed and Electronically Signed By: Taqueria Santamaria Signed Date: 11/05/2024 12:04 ET Workstation ID: [id number] Transcribed By: Self Edit Transcribed Date: 11/05/2024 11:39 ET Resident/PA/ALUMINA REFINERY OPERATOR: Magdalena Mcneil Narrative 11/05/2024 12:04 PM EDT FINDINGS: Double contrast UGI performed. COMPARISON: No prior upper GI imaging; portions of outside CT abdomen and pelvis imaging reviewed May 09, 2024 HISTORY: Patient is a 39-year-old female with history of loss of appetite, nausea vomiting, epigastric pain for one year. DIGITAL TRAFFIC COORDINATOR radiographs: [employer] radiograph of the abdomen obtained. Bowel gas pattern is nonobstructive. Visualized lung bases appear clear. Question punctate renal calculi of the left kidney. FINDINGS: Effervescent crystals were administered orally. Thick and thin barium was then administered orally under fluoroscopic control. Esophagus: There is mild esophageal dysmotility. Normal distensibility and mucosal pattern. There is no evidence of obstruction. There is a possible tiny, sliding, axial hiatal hernia. Stomach: Normal distensibility and motility. Prompt passage of contrast from the stomach into the duodenal bulb and sweep. No gastric mass or ulceration. Visualization of proximal small bowel is within normal limits. Gastroesophageal reflux: None Air kerma: 22.06 mGy Procedure Note Taqueria Santamaria MD - 11/05/2024 FINDINGS: Double contrast UGI performed. COMPARISON: No prior upper GI imaging; portions of outside CT abdomen andpelvis imaging reviewed May 09, 2024 HISTORY: Patient is a 39-year-old female with history of loss of appetite,nausea vomiting, epigastric pain for one year. DIGITAL TRAFFIC COORDINATOR radiographs: [employer] radiograph of the abdomen obtained. Bowel gaspattern is nonobstructive. Visualized lung bases appear clear. Questionpunctate renal calculi of the left kidney. FINDINGS: Effervescent crystals were administered orally. Thick and thinbarium was then administered orally under fluoroscopic control. Esophagus: There is mild esophageal dysmotility. Normal distensibility andmucosal pattern. There is no evidence of obstruction. There is a possibletiny, sliding, axial hiatal hernia. Stomach: Normal distensibility and motility. Prompt passage of contrastfrom the stomach into the duodenal bulb and sweep. No gastric mass orulceration. Visualization of proximal small bowel is within normal limits. Gastroesophageal reflux: None Air kerma: 22.06 mGy IMPRESSION: 1. Mild esophageal dysmotility. 2. Possible tiny, sliding, axial hiatal hernia without visualizedgastroesophageal reflux. -------- FINAL REPORT -------- Dictated By: Magdalena Mcneil Dictated Date: 11/05/2024 09:44 ET Assigned Physician: Taqueria Santamaria Reviewed and Electronically Signed By: Taqueria Santamaria Signed Date: 11/05/2024 12:04 ET Workstation ID: [id number] Transcribed By: Self Edit Transcribed Date: 11/05/2024 11:39 ET Resident/PA/ALUMINA REFINERY OPERATOR: Magdalena Mcneil us Jacqueline Sultana NP IMG FLUOROSCOPY PROCEDURES Fi nal Result * Thyroid stimulating hormone with reflex to free t4 and free t3 (11/02/2024 4:17 PM EDT) TSH 2.03 0.40 - 4.00 mcIU/mL LAB CHEMISTRY METHOD 11/02/2024 8:54 PM EDT [facility] Blood Venous blood specimen / Unknown Venipuncture / Unknown 11/02/2024 4:17 PM EDT 11/02/2024 4:17 PM EDT Stephanie LIRIANO LAB BLOOD ORDERABLES Fin al Result [facility] [address] [place] [address], [place] [phone] * (ABNORMAL) Lipid panel with reflex to direct LDL (11/02/2024 4:17 PM EDT) Cholesterol 256(H) 0 - 200 mg/dL LAB CHEMISTRY METHOD 11/02/2024 8:42 PM EDT [facility] Triglycerides 286(H) 0 - 150 mg/dL LAB CHEMISTRY METHOD 11/02/2024 8:42 PM EDT [facility] HDL 71 >=40 mg/dL LAB CHEMISTRY METHOD 11/02/2024 8:42 PM EDT [facility] LDL Calculated 128(H) 0 - 100 mg/dL LAB CHEMISTRY METHOD 11/02/2024 8:42 PM EDT [facility] VLDL Cholesterol Gallito 57.2 mg/dL LAB CHEMISTRY METHOD 11/02/2024 8:42 PM EDT [facility] Non HDL Chol. (LDL+VLDL) 185(H) <145 mg/dL LAB CHEMISTRY METHOD 11/02/2024 8:42 PM EDT [facility] Chol/HDL Ratio 3.6 0.0 - 4.4 LAB CHEMISTRY METHOD 11/02/2024 8:42 PM EDT [facility] Blood Venous blood specimen / Unknown Venipuncture / Unknown 11/02/2024 4:17 PM EDT 11/02/2024 4:17 PM EDT Stephanie LIRIANO LAB BLOOD ORDERABLES Fin al Result Performing Organization Address [facility]/ZIP Co de Phone Number [facility] [address] [place] [address], * Hemoglobin A1c (11/02/2024 4:17 PM EDT) [facility] Hemoglobin A1C <4.2 <6.5 % LAB CHEMISTRY METHOD 11/02/2024 9:57 PM EDT [facility] Mean Bld Glu Estim. LAB CHEMISTRY METHOD 11/02/2024 9:57 PM EDT [facility] Comment:Unable to calculate due to HgB A1C being outside of the reportable range Blood Venous blood specimen / Unknown Venipuncture / Unknown 11/02/2024 4:17 PM EDT 11/02/2024 4:17 PM EDT Stephanie LIRIANO LAB BLOOD ORDERABLES Fin al Result Performing Organization Address [facility]/ZIP Co de Phone Number [facility] [address] [place] [address], * (ABNORMAL) Iron and TIBC (11/02/2024 3:42 PM EDT) [facility] Iron 142 40 - 150 mcg/dL LAB CHEMISTRY METHOD 11/02/2024 7:43 PM EDT [facility] TIBC 266 250 - 450 mcg/dL LAB CHEMISTRY METHOD 11/02/2024 7:43 PM EDT [facility] Iron Saturation 53(H) 15 - 50 % LAB CHEMISTRY METHOD 11/02/2024 7:43 PM EDT [facility] Blood Venous blood specimen / Unknown Venipuncture / Unknown 11/02/2024 3:42 PM EDT 11/02/2024 3:42 PM EDT Ede Hagan MD LAB BLOOD ORDERABLES Final R esult [facility] [address] [place] [address], * (ABNORMAL) Complete blood count (11/02/2024 3:42 PM EDT) WBC 9.4 4.8 - 10.8 K/mcL LAB HEMETOLOGY METHOD 11/02/2024 6:34 PM EDT [facility] RBC 3.90 3.80 - 4.80 M/mcL LAB HEMETOLOGY METHOD 11/02/2024 6:34 PM EDT [facility] Hemoglobin 13.3 11.5 - 16.0 g/dL LAB HEMETOLOGY METHOD 11/02/2024 6:34 PM EDT [facility] Hematocrit 39.3 35.0 - 47.0 % LAB HEMETOLOGY METHOD 11/02/2024 6:34 PM EDT [facility] MCV 101.3(H) 79.0 - 98.0 FL LAB HEMETOLOGY METHOD 11/02/2024 6:34 PM EDT [facility] MCH 34.3(H) 27.0 - 32.0 pcg LAB HEMETOLOGY METHOD 11/02/2024 6:34 PM EDT [facility] MCHC 33.8 32.0 - 37.0 g/dL LAB HEMETOLOGY METHOD 11/02/2024 6:34 PM EDT [facility] RDW 12.0 11.0 - 15.0 % LAB HEMETOLOGY METHOD 11/02/2024 6:34 PM EDT [facility] Platelets 369 130 - 400 K/mcL LAB HEMETOLOGY METHOD 11/02/2024 6:34 PM EDT [facility] MPV 9.1 7.0 - 11.0 FL LAB HEMETOLOGY METHOD 11/02/2024 6:34 PM EDT [facility] NRBC 0.0 <1.0 % LAB HEMETOLOGY METHOD 11/02/2024 6:34 PM EDT [facility] NRBC Absolute 0.00 <0.10 K/mcL LAB HEMETOLOGY METHOD 11/02/2024 6:34 PM EDT [facility] Blood Venous blood specimen / Unknown Venipuncture / Unknown 11/02/2024 3:42 PM EDT 11/02/2024 3:42 PM EDT Ede Hagan MD LAB BLOOD ORDERABLES Final R esult Performing Organization Address City/[facility]/ZIP Co de Phone Number [facility] [address] [place] [address], [place] [phone] * Ferritin (11/02/2024 3:42 PM EDT) Ferritin 181 8 - 252 ng/mL LAB CHEMISTRY METHOD 11/02/2024 7:43 PM EDT [facility] Blood Venous blood specimen / Unknown Venipuncture / Unknown 11/02/2024 3:42 PM EDT 11/02/2024 3:42 PM EDT Ede Hagan MD LAB BLOOD ORDERABLES Final R esult Performing Organization Address City/[facility]/ZIP Co de Phone Number [facility] [address] [place] [address], [place] [phone] * (ABNORMAL) Comprehensive metabolic panel (11/02/2024 3:42 PM EDT) Sodium 135 133 - 145 mmol/L LAB CHEMISTRY METHOD 11/02/2024 7:43 PM EDT [facility] Potassium 3.9 3.5 - 5.5 mmol/L LAB CHEMISTRY METHOD 11/02/2024 7:43 PM EDT [facility] Chloride 101 96 - 110 mmol/L LAB CHEMISTRY METHOD 11/02/2024 7:43 PM [facility] CO2 26 21 - 32 mmol/L LAB CHEMISTRY METHOD 11/02/2024 7:43 PM [facility] Anion Gap 8 3 - 11 LAB CHEMISTRY METHOD 11/02/2024 7:43 PM [facility] Glucose 82 70 - 100 mg/dL LAB CHEMISTRY METHOD 11/02/2024 7:43 PM [facility] BUN 11 5 - 25 mg/dL LAB CHEMISTRY METHOD 11/02/2024 7:43 PM [facility] Creatinine 0.85 0.50 - 1.10 mg/dL LAB CHEMISTRY METHOD 11/02/2024 7:43 PM [facility] eGFR 89 >=60 mL/min/1. 73m2 LAB CHEMISTRY METHOD 11/02/2024 7:43 PM [facility] Comment:Calculation based on the Chronic Kidney Disease Epidemiology Collaboration (CKD-EPI) equation refit without adjustment for race. BUN/Creatinine Ratio 12.9 LAB CHEMISTRY METHOD 11/02/2024 7:43 PM [facility] Calcium 9.2 8.5 - 10.5 mg/dL LAB CHEMISTRY METHOD 11/02/2024 7:43 PM [facility] AST (SGOT) 34 10 - 42 unit/L LAB CHEMISTRY METHOD 11/02/2024 7:43 PM [facility] ALT (SGPT) 75(H) 10 - 60 unit/L LAB CHEMISTRY METHOD 11/02/2024 7:43 PM [facility] Alkaline Phosphatase 69 42 - 121 unit/L LAB CHEMISTRY METHOD 11/02/2024 7:43 PM [facility] Total Protein 7.8 6.0 - 8.0 g/dL LAB CHEMISTRY METHOD 11/02/2024 7:43 PM [facility] Albumin 4.6 3.2 - 5.0 g/dL LAB CHEMISTRY METHOD 11/02/2024 7:43 PM EDT [facility] Total Bilirubin 0.5 0.0 - 1.4 mg/dL LAB CHEMISTRY METHOD 11/02/2024 7:43 PM EDT [facility] Blood Venous blood specimen / Unknown Venipuncture / Unknown 11/02/2024 3:42 PM EDT 11/02/2024 3:42 PM EDT Ede Hagan MD LAB BLOOD ORDERABLES Final R esult Performing Organization Address City/[facility]/ZIP Co de Phone Number [facility] [address] [place] [address], [place] [phone] * Hepatitis C antibody (06/29/2024 9:02 AM EST) [facility] Hepatitis C Antibody Negative Negative LAB CHEMISTRY METHOD 06/29/2024 1:13 PM EST [facility] Blood Venous blood specimen / Unknown Venipuncture / Unknown 06/29/2024 9:02 AM EST 06/29/2024 9:02 AM EST Jacqueline Sultana NP LAB BLOOD ORDERABLES Final Re sult [facility] [address] [place] [address], [place] [phone] * HIV Screening (03/25/2022) [facility] HIV Screening abstracted Historical Provider HEALTH MAINTENANCE Final Result * Cervical Cancer Screening: HPV (09/29/2020) [facility] Cervical Cancer Screening: HPV negative, abstracted us Historical Provider HEALTH MAINTENANCE Final Result from Last 3 Months or Most Recently Relevant to Health Maintenance Insurance [facility] Care Teams Floor Polisher Relationship Specialty Start Date End Date Urbano Trinidad MD [address] [place] [address] PCP - General Internal Medicine 09/19/21
--- OUTSIDE RECORDS SUMMARY | 2025-02-01 16:10 | XMS_ITS ---
Author Name [facility] Organization Unknown Care Team Organization Name Specialty Phone Email Start Date End Da te [facility] Urbano Trinidad Primary Care 11/08/202212/31 [facility] Margo Lombardo DO Primary Care 10/07/202212/31 [facility] Javier Horn Primary Care 04/09/2022
== END 2025-02-01 14:52 | disposition home or self-care (01) ==
LOC: HO.BBR 14:51
PROVIDERS: PCP Pediatrics; Visit Provider Internal Medicine
DX: Z13.89 Encounter for screening for other disorder (principal)